=== PATIENT | female | born 1970 | race African-American/Black ===

== ENCOUNTER 2016-08-12 16:00 | Inpatient (IN) | payer OTHER ==
--- NOTE | ~2016-08-12 | DS ---
Unit #: [id number] #: [id number] Patient: SETH ARMSTRONG [id number] [facility] [address] [place] [address] [id number] MR#: [id number] NAME: SETH ARMSTRONG ROOM: [facility] Age: 45 Sex: F Admission Date: 08/12/2016 : 1970 Discharge Date: Attending Physician: Kameron Hoffman M.D. Primary Care Physician: Primary Care Physician No DISCHARGE SUMMARY IDENTIFYING DATA Ms. Armstrong is a 45-year-old female who is a resident of [place], [place] and is known to us from previous encounter and was self-referred to the hospital on a voluntary basis. DISCHARGE DIAGNOSES Psychiatric: Schizoaffective disorder, bipolar type, most recent episode manic with psychosis. Medical: Hypertension, human papillomavirus. Stressors: Moderate psychosocial stressors. HISTORY OF PRESENT ILLNESS Please see initial psychiatric evaluation for details. PAST PSYCHIATRIC HISTORY Please see initial psychiatric evaluation for details. PAST MEDICAL HISTORY Please see initial psychiatric evaluation for details. HOSPITAL COURSE The patient [facility] and was oriented to the hospital environment. Routine p.r.n. medications were initiated, and she was started back on her home medications and was closely monitored. She was taking the medications regularly and was tolerating them fairly well and was able to show a decent and therapeutic response with improvement in enrike and psychosis and was denying any thoughts of wanting to hurt herself or anyone else and was wanting to go home and was not seen to be a danger to self or anyone else, and as such, it was decided that she will be discharged home and will continue treatment on an outpatient basis. DISCHARGE MEDICATIONS Risperdal 3 mg at bedtime for psychosis and Prozac 40 mg a day for depression. DISCHARGE CONDITION Stable. PROGNOSIS Fair. Dictated by... Unit #: [id number] #: [id number] Patient: SETH ARMSTRONG Derrick Horton/jerrica TD: 08/16/2016 08:32 JOB #: [id number] DISCHARGE SUMMARY Page 1 of 1 X Kameron Hoffman MD DISCHARGE SUMMARY
--- NOTE | ~2016-08-12 | PN ---
Unit #: [id number] #: [id number] Patient: SETH SAVAGE [id number] [facility] [address] [place] [address] [id number] MR#: [id number] NAME: SETH SAVAGE ROOM: P110 Age: 45 Sex: F Admission Date: 08/12/2016 : 1970 Attending Physician: Kameron Hoffman M.D. Admitting Physician: Kameron Hoffman M.D. Primary Care Physician: Primary Care Physician Abril LUNDY PROGRESS NOTES DATE August 14, 2016 DISCUSSION Ms. Savage is a 45-year-old female, who was seen today and chart was reviewed and the case was discussed with the staff. She has been anxious, withdrawn, and rather seclusive to herself. Meanwhile, she has been cooperative with the treatment recommendations and she has been taking the medications and tolerating them fairly well with no reported side effects. MENTAL STATUS EXAMINATION Middle-aged female, who was casually dressed with fair personal hygiene and appears to be in no acute distress or discomfort. She was awake and alert with impaired attention and concentration. Her mood was anxious with a congruent affect. The patient denies any suicidal or homicidal ideations. Her insight and judgment remain slightly impaired. TREATMENT PLAN 1. We will continue her on her current medications and treatment protocol, and will monitor her response to the medications, and make further adjustments as needed. 2. We will continue to followup. Dictated by... Derrick Horton/kobe TD: 08/15/2016 09:34 JOB #: [id number] Unit #: [id number] #: [id number] Patient: SETH SAVAGE PROGRESS NOTES Page 1 of 1 X Kameron Hoffman MD X PROGRESS NOTE
--- NOTE | ~2016-08-12 | TN ---
Unit #: [id number] #: [id number] Patient: SETH SAVAGE [id number] [facility] [address] [place] [address] [id number] MR#: [id number] NAME: SETH SAVAGE ROOM: 32 Age: 45 Sex: F Admission Date: 08/12/2016 : 1970 Discharge Date: 08/16/2016 Attending Physician: Kameron Hoffman M.D. Primary Care Physician: Primary Care Physician No LOC TRANSFER NOTE DATE OF SERVICE: 08/19/2016 HISTORY OF PRESENT ILLNESS Ms. Groves is a 45-year-old, , female, who is a resident of [place], [place], and was stepped down to the outpatient treatment program from the adult inpatient psychiatric unit, where she was hospitalized under my care from 08/12/2016 to 08/16/2016 and was brought to the hospital with acute psychosis and enrike and was started back on her medications including her Risperdal and was stabilized and stepped down to the outpatient treatment program. When seen by me, the patient appears to be doing somewhat better, though still appears to be somewhat elated mood with a lot of makeup and colorful clothes; however, she has not shown any agitation, aggression, and no acute psychosis was noted. The patient reports that she has been staying with her family and has been taking the medications and tolerating them fairly well with no reported side effects. The patient denies any suicidal or homicidal ideations. SUBSTANCE ABUSE HISTORY The patient denies any alcohol and drug abuse. PAST PSYCHIATRIC HISTORY The patient has had a history of multiple inpatient psychiatric hospitalization over the years and has been diagnosed and treated for schizoaffective disorder, bipolar type and is currently on a combination of Prozac and Risperdal. PAST MEDICAL HISTORY Hypertension. ALLERGIES No known medication allergies. PERSONAL AND SOCIAL HISTORY A 45-year-old, , female, who reports that she lives by herself and has fairly decent social support system. MENTAL STATUS EXAMINATION Middle-aged female, who was casually dressed with fair personal hygiene, appears to be in no acute distress or discomfort. She was awake and alert on interaction with intact orientation. Her mood was anxious with a congruent affect. Her speech was slow and goal directed. She denies any suicidal or homicidal ideations and also denies any auditory or visual hallucinations. Her insight and judgment remain Unit #: [id number] #: [id number] Patient: SETH SAVAGE slightly impaired. DIAGNOSTIC IMPRESSION Psychiatric: Schizoaffective disorder, bipolar type, most recent episode depressed, recurrent, moderate, without psychotic features. Medical: None. Stressors: Moderate psychosocial stressors. TREATMENT PLAN 1. The patient has presented with a history of mood disorder and has been decompensating. We will recommend enrolling her into the outpatient treatment program and maintaining her current medications. We will monitor her response and make further adjustments as needed. 2. Supportive therapy was provided to the patient. ESTIMATED LENGTH OF STAY 14 to 21 days. ABILITY TO HELP SELF Limited. WILLINGNESS TO HELP SELF The patient appears to be willing to help self. STRENGTHS 1. Communicative. 2. Cooperative. PROBLEMS 1. Chronic dysphoric symptoms. 2. Poor social support system. DISCHARGE CRITERIA This will be contingent upon the patient's ability to show resolution of her depression and anxiety and her ability to stay safe to herself, particularly after discharge from the hospital. Dictated by... Derrcik Horton/jerrica TD: 08/23/2016 00:55 JOB #: [id number] LOC TRANSFER NOTE Page 1 of 1 X Kameron Hoffman MD X LOC TRANSFER NOTE
--- NOTE | ~2016-08-12 | HP ---
Unit #: [id number] #: [id number] Patient: SETH SAVAGE [id number] [place] [address] [id number] I MR#: [id number] NAME: SETH SAVAGE ROOM: P110 Age: 45 Sex: F Admission Date: 08/12/2016 : 1970 Attending Physician: Kameron Hoffman M.D. Admitting Physician: Kameron Hoffman M.D. Primary Care Physician: Primary Care Physician No HISTORY AND PHYSICAL HISTORY OF PRESENT ILLNESS The patient is a 45-year-old female admitted to [address] [place] [address] on 08/12/2016 for psychosis. PAST MEDICAL HISTORY Hypertension and HBP. PAST SURGICAL HISTORY 1. Ablation 2. EAB x 2 3. D & C 4. Hysteroscopy SOCIAL HISTORY The patient works at [employer]. She lives with her daughter. She uses alcohol occasionally and smokes two blunts per day of marijuana. FAMILY MEDICAL HISTORY Noncontributory. ALLERGIES No known drug allergies. CURRENT MEDICATIONS 1. Vistaril 2. Risperdal 3. Prozac 4. Gabapentin 5. Lisinopril 6. Amlodipine REVIEW OF SYSTEMS CONSTITUTIONAL: No fever or chills. HEENT: Denies any sore throat, ear pain or runny nose. CARDIOVASCULAR: Denies chest pain, irregular heart rhythm or palpitations. CHEST: Denies shortness of breath or cough. No hemoptysis. GASTROINTESTINAL: Denies nausea, vomiting, diarrhea or chronic constipation. ENDOCRINE: Denies history of increased thirst or urination. No recent significant weight loss or gain. GENITOURINARY: Denies dysuria, frequency, or hematuria. SKIN: Denies any rashes. HEMATOLOGIC: Denies history of increased bleeding or bruising. Unit #: [id number] #: [id number] Patient: SETH SAVAGE MUSCULOSKELETAL: Denies any hot, swollen joints. No generalized muscle pain. NEUROLOGIC: Denies problems with vision or speech. No frequent, severe headaches. No numbness, tingling or weakness in any extremities. Denies loss of bladder or bowel control. PHYSICAL EXAM GENERAL: She is awake, alert and oriented in no acute distress. VITAL SIGNS: Temperature 99.1, heart rate 126, respiration 18, blood pressure 119/84. HEIGHT: 5'6". WEIGHT: 183 pounds. SKIN: Warm and dry without rash or lesion. HEENT: Normocephalic. TMs not viewed. Oral and nasal passages clear. Conjunctivae clear. PERRLA. EOMs intact. NECK: Supple without lymphadenopathy or thyromegaly. HEART: Regular rate and rhythm without murmur. LUNGS: Clear. ABDOMEN: Soft, nontender. : Not done. EXTREMITIES: No evidence of cyanosis, clubbing or edema. Moves all without focal deficit. NEUROLOGICAL: Grossly within normal limits. Cranial Nerves: II: Visual bhakta are intact. III, IV AND : Extraocular movements are intact. Pupils are equal, round and reactive to light. V: Facial sensation is grossly normal. VII: Facial movements and expression are normal. VIII: Auditory acuity grossly intact. IX, X: Uvula is midline. Phonation is normal. XI: Patient shrugs shoulders and turns head normally. XII: Tongue protrudes in the midline. Sensory and Motor Function: Sensory and motor sensation is grossly normal. Motor: moves all extremities well. IMPRESSION 1. Psychiatric admission. 2. Hypertension. 3. HBP. RECOMMENDATIONS Psychiatric per psychiatrist. MEDICAL: No contraindication to participate in facility activities. MEDICAL PROGNOSIS Fair. MEDICAL CONDITION Stable. Dictated by... Brian Cruz/marley Unit #: [id number] #: [id number] Patient: SETH SAVAGE TD: 08/15/2016 04:06 JOB #: [id number] HISTORY AND PHYSICAL Page 1 of 1 X PARAG WISEMAN APRN X HISTORY AND PHYSICAL
--- NOTE | ~2016-08-12 | PA ---
Unit #: [id number] #: [id number] Patient: SETH ARMSTRONG [id number] [facility] [address] [place] [address] [id number] Alicia MR#: [id number] NAME: SETH ARMSTRONG ROOM: P110 Age: 45 Sex: F Admission Date: 08/12/2016 : 1970 Date of Assessment: Attending Physician: Kameron Hoffman M.D. Admitting Physician: Kameron Hoffman M.D. PSYCHIATRIC ASSESSMENT DATE OF SERVICE 08/13/2016. IDENTIFYING DATA Ms. Armstrong is a 45-year-old female, who is a resident of [place], [place], and is known to us from previous multiple encounters and was recently active under my care in the intensive outpatient treatment program and was brought to the hospital by police. CHIEF COMPLAINT "I've been up all night yesterday, my mind went racing, I did not have any sleep." HISTORY OF PRESENT ILLNESS Ms. Armstrong is a 45-year-old female with history of schizoaffective bipolar type, who was recently active under my care in the outpatient treatment program last month, where she was seen to be rather in significant depressive episode and now she was brought in by the police in an acute manic phase stating that she has not been sleeping and her mind is racing and was seen to be in an elated mood, then "I started to do when I moved into my apartment in February last year and I was happy when I got my place and "I'm still dealing with something from the divorce I'm manic right now, I have not had any sleep, I'm having suicidal thoughts. Mental health police came out there daughter bring me, she only has her because I feel like that is what I'm about to do. I have not been in a relationship with anybody. My daughter was diagnosed with bipolar and I did not know how to handle her 2 years ago I called 911 to see if they could take me and I told them who my doctor was and they called the [facility] office got into fight and she is 5 months' she was not getting her medication right." She was seen to be constantly moving and talking and not making sense and was seen to be in a manic phase with suicidal thoughts and as such, a recommendation for inpatient level of care for safety and stabilization was made and the patient was transferred to us. 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 PAST PSYCHIATRIC HISTORY The patient has had a history of multiple inpatient psychiatric hospitalizations at [facility] Unit #: [id number] #: [id number] Patient: [facility], [place], operated by [facility] and has been diagnosed and treated for bipolar disorder and more recently, has been in a manic phase. PAST MEDICAL HISTORY Hypertension and human papilloma virus. ALLERGIES No known medication allergies. PERSONAL AND SOCIAL HISTORY A 45-year-old female, who reports that she is single, unemployed, and lives with her two daughters and a grandson. MENTAL STATUS EXAMINATION Middle-aged female, who was casually dressed with fair personal hygiene, appears to be in no acute distress or discomfort. She was awake and alert on interaction with intact orientation. Her mood was anxious and depressed with a congruent affect. Her speech was slow and restricted in content. Her thought processes were disorganized with some looseness of associations and flight of ideas. Her insight and judgment remain significantly impaired. DIAGNOSTIC IMPRESSION Psychiatric: Schizoaffective disorder, bipolar type, most recent episode manic with psychosis. Medical: Hypertension and human papilloma virus. Stressors: Moderate psychosocial stressors. TREATMENT PLAN 1. The patient has presented with a history of mood disorder and has been decompensating and will need inpatient hospitalization for safety and stabilization. We will start her back on her home medications. We will adjust the medications and monitor response and make further adjustments as needed. 2. Supportive therapy was provided to the patient. 3. Safe, structured, and nourishing environment will be provided. ESTIMATED LENGTH OF STAY 4 to 5 days. ABILITY TO HELP SELF Limited. WILLINGNESS TO HELP SELF The patient appears to be willing to help self. STRENGTHS 1. Communicative. 2. Cooperative. PROBLEMS 1. Chronic dysphoric symptoms. 2. Poor social support system. DISCHARGE CRITERIA This will be contingent upon the patient's ability to show resolution of her enrike and psychosis and her ability to stay safe to herself, particularly after discharge from the hospital. Unit #: [id number] #: [id number] Patient: SETH ARMSTRONG Dictated by... Derrick Horton/jerrica TD: 08/13/2016 17:16 JOB #: [id number] PSYCHIATRIC ASSESSMENT Page 1 of 1 X Kameron Hoffman MD X PSYCHIATRIC ASSESSMENT
[2016-08-13 11:33] LABS: BASOPHIL# 0.1 X10e3 (0-0.3); EOSINOPHIL% 0.3 % (0.0-7.0); HEMATOCRIT 37.1 % (35.0-45.0); HEMOGLOBIN 12.3 gm/dL (12.0-16.0); MEAN CELL VOLUME 81.5 FL (83-96); MEAN CORPUSCULAR HEMOGLOBIN 26.9 PG (28-34); MEAN PLATELET VOLUME 7.6 FL (6.5-11.5); MONOCYTE# 0.7 X10e3 (0-1.0); MONOCYTE% 8.9 % (3.0-12.0); NEUTROPHIL# 5.1 X10e3 (1.5-7.1); NEUTROPHIL% 64.8 % (40-75); PLATELET COUNT 332 X10e3 (140-420); RED BLOOD COUNT 4.55 X10e (3.90-5.30); WHITE BLOOD COUNT 7.9 X10e3 (4.0-10.5)
[2016-08-13 11:38] LABS: DIFF IND NO
[2016-08-13 11:49] LABS: ALBUMIN SERUM 4.7 g/dL (3.5-5.0); BILIRUBIN,TOTAL 1.2 mg/dL (0.2-2.0); BUN/CREATININE RATIO 14.28; CALCIUM SERUM 9.8 mg/dL (8.4-10.2); CREATININE SERUM 0.7 mg/dL (0.6-1.4); GLOM FILT RATE Estimated 122.1 mL/min (>60); POTASSIUM 3.3 mmol/L (3.5-5.1); PROTEIN TOTAL SERUM 7.6 g/dL (6.0-8.3)
== END 2016-08-16 15:24 | disposition home or self-care (01) | DRG 885 ==
LOC: P1S 18:30
PROVIDERS: Psychiatry & Neurology Psychiatry
DX: F25.0 Schizoaffective disorder, bipolar type (principal); I10 Essential (primary) hypertension
CPT/HCPCS: 80053; 84703; 85025